=== PATIENT | female | born 2005 | race Caucasian/White ===

== ENCOUNTER 2025-06-25 21:32 | Emergency (ER) | payer BC ==
[~2025-06-25] VITALS: Ht 154.9 cm; Wt 50.8 kg
[2025-06-25 22:14] LABS: BASOPHILS % 0.4 % (0.0-1.0); EOSINOPHILS % 0.4 % (0.0-6.0); LYMPHOCYTES % 31.0 % (18.0-39.1); MONOCYTES % 7.7 % (4.4-11.3); NEUTROPHILS % 60.4 % (38.7-80.0); RED CELL DISTRIBUTION WIDTH 11.3 % (11.7-14.4)
[2025-06-25 22:17] LABS: LEUKOCYTE ESTERASE ,URINE MODERATE (NEGATIVE); PROTEIN,URINE DIPSTICK NEGATIVE (NEGATIVE); URINE UROBILINOGEN 0.2 mg/dL (0.2 - 1)
[2025-06-25 22:18] LABS: PREGNANCY TEST, URINE NEGATIVE (NEGATIVE)
[2025-06-25 22:22] LABS: EPITHELIAL CELLS,URINE MANY /LPF; WBC,URINE (MAN) 0-5 /HPF (0-5)
[2025-06-25 22:35] LABS: EST GLOMERULAR FILTRATION RATE 126.0 ML/MIN (>=60)
[2025-06-25] MEDS: SODIUM CHLORIDE 0.9% 1000ML 1,000 ML IV STA (23:38)
[2025-06-25] MEDS: ONDANSETRON HCL INJ 2MG/ML 2ML 2 MG/ML VIAL IV STA ×2 (23:38→23:39)
[2025-06-25] MEDS: KETOROLAC TROMETHAMINE 30 MG/ML VIAL IV STA (23:39)
[2025-06-26] MEDS ORDERED: KETOROLAC TROME10 MG PO (03:01)
[2025-06-26] MEDS ORDERED: ONDANSETRON ODT4 MG PO (03:01)
[2025-06-26 03:16] VITALS: PULSE 85; RESP 16; TEMP 98.4
[2025-06-26 03:19] VITALS: BP 106/68; PULSE 76; RESP 16; O2SAT 100
== END 2025-06-26 03:18 | disposition home or self-care (01) ==
LOC: ER 22:13
DX: R10.31 Right lower quadrant pain (principal); N83.291 Other ovarian cyst, right side; R11.2 Nausea with vomiting, unspecified; R68.83 Chills (without fever)
CPT/HCPCS: 36415; 74177; 76856; 80053; 81001; 81025; 83690; 85025; 93976; 99284; J1885; J2405; J7030